=== PATIENT | female | born 1950 | race Caucasian/White ===

== ENCOUNTER 2017-07-14 09:54 | Emergency (ER) | payer MEDICARE, BC ==
[2017-07-14 10:35] VITALS: BP 132/51
--- NOTE | 2017-07-14 11:08 | EDM.PDOC ---
ED HPI GENERAL MEDICAL PROBLEM - General Chief Complaint: Chest Pain Stated Complaint: PAIN IN THE UPPER CHEST Time Seen by Provider: 07/14/17 11:03 Source of Information: Reports: Patient History Limitations: Reports: No Limitations - History of Present Illness INITIAL COMMENTS - FREE TEXT/NARRATIVE: pt arrived with pain accross the left clavicle area. This was tight. She did not note any palpitation. She was not sob and she does feel ok at this time. She had a cardiolyte stress test that showed a very small defect at the apex which could have even been a aretefact. She has a great ejection fraction at 76 %. She has very few risk factors. She did see cardiology which also did not feel that any further workup was indicated. Onset: Other ( last nite. ) Duration: Minutes:, Other ( She had discomfort for at the most 10 to 15 minutes. ) Location: Reports: Chest Associated Symptoms: Reports: Chest Pain - Related Data Allergies Allergy/AdvReac Type Severity Reaction Status Date / Time codeine Allergy Tachycardia Verified 07/06/17 08:51 Home Meds: Home Meds Ascorbic Acid [C-1000] 1,000 mg PO DAILY 07/02/17 [History] Cholecalciferol (Vitamin D3) [Vitamin D3] 3,000 unit PO DAILY 07/02/17 [History] Gluc Peña Dipo Ch/[place] Peña/C/Anibal [Glucosamine Chondroitin Caplet] 1 each PO BID [History] Lisinopril [Prinivil] 20 mg PO DAILY 07/02/17 [History] Metoprolol Succinate [Toprol XL] 25 mg PO DAILY 07/02/17 [History] Multivitamin [Daily Multiple Vitamin] 1 tab PO DAILY 07/02/17 [History] [place]-3/DHA/Epa/Fish Oil [[place] 3 500 Softgel] 2 each PO DAILY 07/02/17 [History ] Ubidecarenone [Coenzyme Q10] 100 mg PO DAILY 07/02/17 [History] Vitamin B Complex 1 each PO DAILY 07/02/17 [History] Vitamin E 400 unit PO DAILY 07/02/17 [History] Warfarin Sodium 5 mg PO ASDIRECTED 07/02/17 [History] Zinc Acetate [Galzin] 25 mg PO DAILY 07/02/17 [History] Past Medical History Cardiovascular History: Reports: Angina Endocrine/Metabolic History: Reports: Hypoparathyroidism - Past Surgical History HEENT Surgical History: Reports: Cataract Surgery Female Surgical History: Reports: Hysterectomy Musculoskeletal Surgical History: Reports: Knee Replacement Social & Family History - Tobacco Use Smoking Status *Q: Never Smoker ED ROS GENERAL - Review of Systems Review Of Systems: See Below Constitutional: Reports: No Symptoms HEENT: Reports: No Symptoms Respiratory: Reports: No Symptoms Cardiovascular: Reports: Chest Pain, Other ( brief spell of upper left chest pain. ) Endocrine: Reports: No Symptoms GI/Abdominal: Reports: No Symptoms : Reports: No Symptoms Musculoskeletal: Reports: Other (pt did not do anything different yesterday in terms of activity. ) Skin: Reports: No Symptoms ED EXAM, GENERAL - Physical Exam Exam: See Below Free Text/Narrative:: pt had an episode of chest pain by the left clavicle that lasted about 15 minutes at maximum. Exam Limited By: No Limitations General Appearance: Alert, No Apparent Distress Ears: Normal TMs Nose: Normal Inspection Throat/Mouth: Normal Inspection Head: Atraumatic Neck: Normal Inspection Respiratory/Chest: No Respiratory Distress Cardiovascular: Regular Rate, Rhythm, Other (pt is completely pain free. Pt does have pain in the muscle by the left clavicle. ) GI/Abdominal: Soft, Non-Tender (Female) Exam: Deferred Rectal (Female) Exam: Deferred Back Exam: Normal Inspection Extremities: Normal Inspection Neurological: Alert, Oriented, Normal Cognition Psychiatric: Normal Affect, Anxious Course - Vital Signs Last Recorded V/S: Last Vital Signs Temp 36.1 C 07/14/17 10:29 Pulse 61 07/14/17 10:29 Resp 14 07/14/17 10:29 BP 132/51 L 07/14/17 10:29 Pulse Ox 100 07/14/17 10:29 - Orders/Labs/Meds Orders: Active Orders 24 hr Category Date Time Status EKG Documentation Completion [RC] ASDIRECTED Care 07/14/17 11:03 Active EKG 12 Lead [EK] Routine Ther 07/14/17 11:03 Ordered Labs: Laboratory Tests 07/14/17 07/14/17 07/14/17 Range/Units 11:16 11:16 11:16 WBC 5.5 (4.5-11.0) K/uL RBC 4.76 (3.30-5.50) M/uL Hgb 13.2 (12.0-15.0) g/dL Hct 40.3 (36.0-48.0) % MCV 85 (80-98) fL MCH 28 (27-31) pg MCHC 33 (32-36) % Plt Count 190 (150-400) K/uL Neut % (Auto) 58 (36-66) % Lymph % (Auto) 31 (24-44) % [place] % (Auto) 9 H (2-6) % Eos % (Auto) 1 L (2-4) % Baso % (Auto) 1 (0-1) % Sodium 141 (140-148) mmol/L Potassium 4.4 (3.6-5.2) mmol/L Chloride 105 (100-108) mmol/L Carbon Dioxide 28 (21-32) mmol/L Anion Gap 7.8 (5.0-14.0) mmol/L BUN 16 (7-18) mg/dL Creatinine 0.8 (0.6-1.0) mg/dL Est Cr Clr Drug Dosing 58.12 mL/min Estimated GFR (MDRD) > 60 (>60) Glucose 96 (74-106) mg/dL Calcium 8.6 (8.5-10.1) mg/dL Total Bilirubin 0.8 (0.2-1.0) mg/dL AST 21 (15-37) U/L ALT 31 (12-78) U/L Alkaline Phosphatase 77 (46-116) U/L Troponin I < 0.017 (0.000-0.056) ng/mL Total Protein 6.9 (6.4-8.2) g/dL Albumin 3.4 (3.4-5.0) g/dL Globulin 3.5 (2.3-3.5) g/dL Albumin/Globulin Ratio 1.0 L (1.2-2.2) - Re-Assessments/Exams Free Text/Narrative Re-Assessment/Exam: 07/14/17 12:41 pt has a unchanged ekg. She has a recent stress test and visit with cardiology which was good. The stress test showed a very small reversible area in the inferior portion of the heart this was discribed as possible artefact. She has an injection fraction of 76% Departure - Departure Time of Disposition: 12:43 Disposition: Home, Self-Care 01 Condition: Fair Clinical Impression: Atypical chest pain Referrals: Jhonathan Morgan MD [Primary Care Provider] - Forms: ED Department Discharge Care Plan Goals: rtc if any reoccurence of severe pain, pt was rassured.t - My Orders Last 24 Hours: My Active Orders 07/14/17 11:03 EKG Documentation Completion [RC] ASDIRECTED EKG 12 Lead [EK] Routine - Assessment/Plan Last 24 Hours: My Active Orders 07/14/17 11:03 EKG Documentation Completion [RC] ASDIRECTED EKG 12 Lead [EK] Routine
== END 2017-07-14 13:12 | disposition home or self-care (01) ==
LOC: JP.ED 09:54
DX: R07.89 Other chest pain (principal); Z88.5 Allergy status to narcotic agent; Z79.899 Other long term (current) drug therapy; Z96.659 Presence of unspecified artificial knee joint; Z90.710 Acquired absence of both cervix and uterus
CPT/HCPCS: 36415; 80053; 84484; 85025; 93005; 93010; 99284; 99285-25

== ENCOUNTER 2018-07-04 06:09 | Day surgery (SDC) | payer MEDICARE, BC ==
[2018-07-04] MEDS ORDERED: Bupivacaine 0.5% 50 ML MDV ONE (06:35)
[2018-07-04] MEDS ORDERED: Lidocaine 1% with EPINEPHrine 1:100,000 50 ML MDV ONE (06:35)
[2018-07-04] MEDS ORDERED: Midazolam 1 MG/ML 2 ML SDV ONE (07:14)
[2018-07-04] MEDS ORDERED: fentaNYL 100 MCG/2 ML SDV ONE (07:14)
[2018-07-04] MEDS ORDERED: Propofol 200 MG/20 ML SDV ONE ×2 (07:14→07:45)
[2018-07-04 08:42] VITALS: BP 143/85
[2018-07-04] MEDS ORDERED: Dextrose 5%-Lactated Ringers 1,000 ML IV SCH (08:45)
[2018-07-04] MEDS ORDERED: ceFAZolin 2 GM in Premix Bag 1 BAG IV ONE (09:30)
--- NOTE | 2018-07-09 07:52 | OR ---
DATE OF PROCEDURE: 07/04/2018 PREOPERATIVE DIAGNOSIS: Intermittently bloody right nipple discharge. POSTOPERATIVE DIAGNOSIS: Intermittently bloody right nipple discharge. OPERATIVE PROCEDURE: Right nipple exploration with excision of lactiferous duct ([id number]). ANESTHESIA: Local plus IV sedation. INDICATION FOR PROCEDURE: This 67-year-old female presenting with some nipple discharge. Intermittently, this has been bloody. Given this, histologic confirmation of the underlying cause is required. The plan is to proceed with a nipple exploration and excision of the involved lactiferous duct. Potential risks including bleeding, infection, cosmetic deformity, possibility of malignancy might be identified requiring additional treatment were all reviewed, and the patient wishes to proceed. DETAILS OF PROCEDURE: The patient was taken to the operating room and after IV sedation was administered, the right breast and surrounding areas were prepped and draped. By palpation along the edge of the areola, the duct involved in the discharge was noted to be roughly at 10 o'clock on the right nipple and areolar area. This comports with the patient's history as well. Given this, that area was anesthetized with 1% lidocaine. A periareolar incision was made and centered over the area of concern and carried down through the skin and subcutaneous tissue. The dissection then continued underneath the nipple to the point where the duct involvement was encountered. Upon division, the slightly blood-tinged drainage was noted once again. The lactiferous duct underlying this was also somewhat reddened, and this area was excised and sent for histologic evaluation. The palpation revealed no additional areas of concern. The incision was then inspected for hemostasis and closed with 3-0 and 4- 0 Vicryl stitch deep, and then a 5-0 Vicryl subcuticular stitch. Steri-Strips were applied. The patient was taken to the recovery room in a satisfactory condition. We will contact the patient when we get the pathology report back. Given the presence of the nipple discharge along with the patient's history of a pituitary tumor, a prolactin level was also drawn this morning. Dinesh Mas MD /[id number] [facility]
== END 2018-07-04 08:55 | disposition home or self-care (01) ==
LOC: JP.SDS 06:09
PROVIDERS: ATTEND Surgery
DX: D24.1 Benign neoplasm of right breast (principal); G47.30 Sleep apnea, unspecified; I10 Essential (primary) hypertension; I25.10 Atherosclerotic heart disease of native coronary artery without angina pectoris; K21.9 Gastro-esophageal reflux disease without esophagitis; E78.00 Pure hypercholesterolemia, unspecified; Z88.5 Allergy status to narcotic agent; Z91.02 Food additives allergy status
CPT/HCPCS: 19110; 84146; 88305; J0690; J2250; J2704; J3010; J3490; J7042

== ENCOUNTER 2021-05-03 06:28 | Day surgery (SDC) | payer MEDICARE, OTHER ==
[2021-05-03] MEDS ORDERED: Lidocaine 1% with EPINEPHrine 1:100,000 50 ML MDV ONE (06:39)
[2021-05-03] MEDS ORDERED: Bupivacaine 0.5% 50 ML MDV ONE (06:39)
[2021-05-03] MEDS ORDERED: ceFAZolin 2 GM in Premix Bag 1 BAG IV ONE (07:00)
[2021-05-03] MEDS ORDERED: Dextrose 5%-Lactated Ringers 1,000 ML IV SCH (07:00)
[2021-05-03] MEDS ORDERED: Glycopyrrolate 0.2 MG/ML 5 ML MDV ONE (07:10)
[2021-05-03] MEDS ORDERED: Ondansetron 4 MG/2 ML SDV ONE (07:10)
[2021-05-03] MEDS ORDERED: Succinylcholine 200 MG/10 ML MDV ONE (07:10)
[2021-05-03] MEDS ORDERED: Propofol 200 MG/20 ML SDV ONE (07:10)
[2021-05-03] MEDS ORDERED: Neostigmine Methylsulfate 1 MG/ML 5 ML Syringe ONE (07:10)
[2021-05-03] MEDS ORDERED: fentaNYL 250 MCG/5 ML SDV ONE (07:10)
[2021-05-03] MEDS ORDERED: Dexamethasone 4 MG/ML SDV ONE (07:10)
[2021-05-03] MEDS ORDERED: Rocuronium 50 MG/5 ML Vial ONE (07:10)
[2021-05-03] MEDS ORDERED: Sugammadex Sodium 200 MG/2 ML VIAL ONE (08:22)
[2021-05-03 10:01] VITALS: BP 108/58; PULSE 48
[2021-05-03] MEDS ORDERED: Ondansetron 4 MG/2 ML SDV IVPUSH ONE (10:26)
--- NOTE | 2021-05-11 14:06 | OR ---
DATE OF PROCEDURE: 05/03/2021 SURGEON: Dinesh Mas MD PREOPERATIVE DIAGNOSIS: Persistent right nipple discharge. POSTOPERATIVE DIAGNOSIS: Persistent right nipple discharge. PROCEDURE PERFORMED: Right nipple exploration with excision of lactiferous duct ([id number]). ANESTHESIA: General. INDICATIONS FOR PROCEDURE: This is a 70-year-old presenting with some persistent, generally clear, but sometimes somewhat cloudy nipple discharge from the right side. Examination at the clinic last week as well as this morning showed this to be coming from the ductal element roughly around 5 o'clock. The plan is to proceed with right nipple exploration with excision of the underlying lactiferous duct that is involved. Potential risks of the procedure including bleeding, infection, possible recurrence of the discharge from other ductal systems, as well as possible areas of skin necrosis related to the dissection underneath the nipple were gone over, and the patient wishes to proceed. DETAILS OF PROCEDURE: The patient was taken to the operating room and placed in a supine position. After general endotracheal anesthesia was induced, the right breast and surrounding areas were prepped and draped. On the inferior aspect of the nipple-areolar border on the right side, incision was made and carried down through the skin and subcutaneous tissue, and at that point, the ductal element 5 o'clock was identified. This did have some distended fluid within the ductal system visible. This was dissected posteriorly and inferiorly along the course of the duct and that tissue then excised. Some of the tissue underlying the nipple was excised along with the ductal tissue. At that point, further dissection underneath the nipple revealed no additional areas of concern. At that point, hemostasis was controlled with electrocautery and the incision closed with layers of 3-0 and 4-0 Vicryl stitch deep and then a 5-0 Vicryl subcuticular stitch. A dressing was applied. The patient was taken to the recovery room in satisfactory condition. Dinesh Mas MD /[id number]
== END 2021-05-03 12:26 | disposition home or self-care (01) ==
LOC: JP.SDS 06:28
PROVIDERS: ATTEND Surgery
DX: N62 Hypertrophy of breast (principal); N64.52 Nipple discharge; N60.11 Diffuse cystic mastopathy of right breast; I10 Essential (primary) hypertension; I25.10 Atherosclerotic heart disease of native coronary artery without angina pectoris; I25.2 Old myocardial infarction; G47.33 Obstructive sleep apnea (adult) (pediatric); M19.90 Unspecified osteoarthritis, unspecified site; E66.01 Morbid (severe) obesity due to excess calories; Z68.41 Body mass index [BMI] 40.0-44.9, adult; Z79.01 Long term (current) use of anticoagulants
CPT/HCPCS: 19110; 36415; 85610; 88305; J0330; J0690; J1100; J2405; J2704; J2710; J3010; J3490; J7121